=== PATIENT | male | born 1965 | race Caucasian/White ===

== ENCOUNTER 2017-02-20 15:08 | Emergency (ER) | payer SELFPAY ==
[2017-02-20 15:13] VITALS: BP 122/81
[2017-02-20] MEDS ORDERED: Aspirin EC Low Dose* 81 MG TAB.EC PO ONE (15:30)
--- NOTE | 2017-02-20 15:33 | UC ---
Prince Stevenson Alok, scribed for Renay Jimenez MD on 02/20/17 at 1529 . Dizzy HPI HPI Summary: 52M presents to the [facility] accompanied by his fipriscilla for a near syncope episode at 0700 this morning. Pt states he was driving down the highway on his way to work when he nearly lost consciousness. Pt states he felt dizzy and noted he was "fading out." Pt did not lose consciousness or have an accident. No direct trauma. pt states when he arrived at work continued to feel weak and unsteady. Pt states had another episode when thought would pass out at work. Pt spoke to his paulye who is an RN as well as his manager investment. both advised he get checked. His fiancee drove to work in [employer] and brought him here for evaluation. Pt states that since his near syncope episode feeling lightheadedness/dizziness, frontal and vertex SHELTON, weak, and myalgias. Pt denies nausea, chills, fever. No rash. Pt reports ate little lunch which is unusual for him. Pt states he was evaluated 1 approx 1 year ago for vertigo. Pt takes no regular medications. Pt smokes >1ppd and drinks ETOH occasionally. Pt has not taken any OTC medications [employer]. Pt is allergic to Codeine. Pt medications reviewed this visit. - History Of Current Complaint Chief Complaint: UCDizziness Stated Complaint: FAINT SPELL,STIFF NECK,LIGHTHEADED Hx Obtained From: Patient Onset/Duration: Still Present Timing: Constant Severity Initially: Moderate Severity Currently: Moderate Character: Lightheaded, Dizzy Aggravating Factor(s): Nothing Alleviating Factor(s): Nothing Associated Signs And Symptoms: Negative: Nausea - Allergies/Home Medications Allergies/Adverse Reactions: Allergies Allergy/AdvReac Type Severity Reaction Status Date / Time Codeine Allergy Nausea Verified 02/20/17 15:11 Home Medications: Home Medications NK [No Home Medications Reported] 02/20/17 [History Confirmed 02/20/17] PMH/Surg Hx/FS Hx/Imm Hx Previously Healthy: Yes Other Neurological History: vertigo - Surgical History Surgical History: Yes Surgery Procedure, Year, and Place: plastic surgery to nose, teeth extraction. RIGHT HAND BONE RECONSTRUCTION 1981 - Family History Known Family History: Positive: Unknown - Adopted - Social History Occupation: Employed Full-time Lives: With Family Alcohol Use: Rare Substance Use Type: None Smoking Status (MU): Light Every Day Tobacco Smoker Household Exposure Type: Cigarettes Review of Systems Constitutional: Fatigue, Other - body aches Skin: Negative Eyes: Negative ENT: Negative Respiratory: Negative Cardiovascular: Other - near syncope Gastrointestinal: Negative Genitourinary: Negative Motor: Negative Neurovascular: Negative Musculoskeletal: Other: - myalgia Neurological: Headache, Other - Dizziness, lightheadedness, near syncope, headache Psychological: Negative All Other Systems Reviewed And Are Negative: Yes Physical Exam Triage Information Reviewed: Yes Appearance: Well-Appearing, No Pain Distress, Well-Nourished Vital Signs: Initial Vital Signs Temp 97.5 F 02/20/17 15:09 Pulse 64 02/20/17 15:09 Resp 16 02/20/17 15:09 BP 122/81 02/20/17 15:09 Pulse Ox 100 02/20/17 15:09 Vital Signs Reviewed: Yes Eye Exam: Normal Eyes: Positive: Conjunctiva Clear, Conjunctiva Inflamed. Negative: Discharge ENT Exam: Normal ENT: Positive: Normal ENT inspection, Hearing grossly normal, TMs normal. Negative: Pharynx normal, Pharyngeal erythema, Nasal congestion, Nasal drainage , TM bulging, Trismus, Other: - No nystagmus, no photophobia Dental Exam: Normal Neck exam: Normal Neck: Positive: Supple, Nontender, No Lymphadenopathy Respiratory Exam: Normal Respiratory: Positive: Chest non-tender, Lungs clear, Normal breath sounds, No respiratory distress Cardiovascular Exam: Normal Cardiovascular: Positive: RRR, No Murmur, Pulses Normal Abdominal Exam: Normal Abdomen Description: Positive: Nontender, No Organomegaly, Soft Bowel Sounds: Positive: Present Musculoskeletal Exam: Normal Musculoskeletal: Positive: Strength Intact, ROM Intact Neurological Exam: Normal Neurological: Positive: Alert, Muscle Tone Normal Psychological Exam: Normal Psychological: Positive: Normal Response To Family Skin Exam: Normal Diagnostics - EKG Cardiac Rate: NL - 59 bpm Cardiac Rhythm: Sinus: Normal - TIME: 1515. Inverted t-waves V4-V6 old from EKG Mar 2016. Inverted T-wave in III. No STEMI Dizzy Course/Dx - Course Course Of Treatment: PT with an episode of near syncope x 2 today - one while driving, one why sitting at work. PT does smoke cigarette, does know know his cholesterol. Pt does not know family hx second to adoption. EKG with new inverted T wave 3. Recommend pt to ED for futher evaluation. recommend pt by EMS. Pt adamant does not want EMS - discussed with pt and financee risk of private vehicle which include but not limited to cardiac arrhythmia, worsening symptoms, permanent disability or . Pt accepting AMA Risks. advised nearest hospital, well puller if sx change or he changes mind. states understanding. Deepak in agreement - Ms. Medina - Differential Dx/Diagnosis Provider Diagnoses: near syncope, lightheadedness Discharge - Discharge Plan Condition: Stable Disposition: AGAINST MEDICAL ADVICE Patient Education Materials: Lightheadedness (ED) Referrals: No Primary Care Phys,NOPCP [Primary Care Provider] - Additional Instructions: The doctor that evaluated you today wanted you to go to the hospital by ambulance - you declined and are going by private car against medical advice. The provider reviewed many of the potential risks. Your finance will be driving you. It is recommended if your symptoms worsen or you have any changes to decision, you well puller and call 911 immediately Go directly to the emergency department at [facility]. The documentation as recorded by the Prince mcarthur Alok accurately reflects the service I personally performed and the decisions made by me, Renay Jimenez MD.
[2017-02-20] MEDS ORDERED: Aspirin Low Dose CHEW TAB* 81 MG ONE (15:37)
== END 2017-02-20 15:49 | disposition left against medical advice (07) ==
LOC: UCEAST 15:08
DX: R55 Syncope and collapse (principal); R42 Dizziness and giddiness; Z72.0 Tobacco use
CPT/HCPCS: 93005; 99212; A9270-GY; G0463

== ENCOUNTER 2017-02-20 16:03 | Emergency (ER) | payer SELFPAY ==
[2017-02-20 17:29] LABS: Hematocrit 42 % (42-52); Hemoglobin 14.4 g/dl (14.0-18.0); Mean Corpuscular HGB Conc 35 g/dl (31-36); Mean Corpuscular Hemoglobin 32 pg (27-31); Mean Corpuscular Volume 92 fL (80-94); Mean Platelet Volume 9 um3 (7.4-10.4); Red Blood Count 4.53 10^6/ul (4.0-5.4); Red Cell Distribution Width 13 % (10.5-15); White Blood Count 5.7 10^3/ul (3.5-10.8)
[2017-02-20 17:30] LABS: Add Diff/Slide Review? Slide Review Added; Comments Flag Yes
[2017-02-20 17:44] LABS: Albumin 4.3 g/dL (3.2-5.2); BUN/Creatinine Ratio 12.7 (8-20); Calcium 9.1 mg/dL (8.6-10.3); EGFR Non-African American 103.4 (>60); Globulin 2.9 g/dL (2-4); Magnesium 2.1 mg/dL (1.9-2.7); Potassium 3.6 mmol/L (3.5-5.0); Total Bilirubin 0.7 mg/dL (0.2-1.0); Total Protein 7.2 g/dL (6.4-8.9)
[2017-02-20] MEDS ORDERED: NS 0.9% 1000 ML* 1,000 ML IV ONE (17:48)
[2017-02-20 18:03] LABS: Eosinophils % 4 % (0-6); Immature Granulocytes 1 % (0-9); Neutrophil % 52 % (38-83); Reactive Lymph % 2 % (0-6)
[2017-02-20 18:04] LABS: RBC Morphology Normal (Normal)
[2017-02-20 18:25] LABS: TSH (Thyroid Stimulating Horm) 1.66 mcIU/mL (0.34-5.60)
--- NOTE | 2017-02-20 18:47 | ED ---
I, Oh,Sobk, scribed for Thad Moctezuma MD on 02/20/17 at 1653 . Syncope/Near Syncope - HPI Summary HPI Summary: This 52 y/o male presents to ED from Urgent Care for near syncopal episode x2 today. Pt was [address] [place] his way to work when pt experienced acute onset of lightheaded dizziness. 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 Positive general weakness, fatigue, mild diffuse SHELTON, and lightheaded dizziness. Pt does report this work place/garage was hot. PMHx/PSHx includes right hand reconstruction. Pt is current 1/2 ppd smoker and rare drinker. Hx of MJ use. Pt admits to habitually drinking coffee daily. Pt does not have any primary care provider. - History Of Current Complaint Chief Complaint: EDSyncope Time Seen by Provider: 02/20/17 16:31 Hx Obtained From: Patient, Medical Records Onset/Duration: Still Present Timing: Constant Context: Unwitnessed Associated Head Trauma: No Aggravating Factor(s): Nothing Alleviating Factor(s): Nothing Associated Signs And Symptoms: Lightheadedness, Weakness - general - Allergies/Home Medications Allergies/Adverse Reactions: Allergies Allergy/AdvReac Type Severity Reaction Status Date / Time Codeine Allergy Nausea Verified 02/20/17 15:11 PMH/Surg Hx/FS Hx/Imm Hx Endocrine/Hematology History: Denies: Hx Diabetes, Hx Thyroid Disease Cardiovascular History: Denies: Hx Hypertension Respiratory History: Denies: Hx Asthma, Hx Chronic Obstructive Pulmonary Disease (COPD) GI History: Denies: Hx Ulcer History: Denies: Hx Renal Disease - Surgical History Surgery Procedure, Year, and Place: plastic surgery to nose, teeth extraction. RIGHT HAND BONE RECONSTRUCTION 1981 Infectious Disease History: Denies: Hx Hepatitis, Hx Human Immunodeficiency Virus (HIV), Traveled Outside the US in Last 30 Days - Family History Known Family History: Positive: Unknown - Adopted - Social History Alcohol Use: Rare Hx Substance Use: No Substance Use Type: Reports: None Hx Tobacco Use: Yes Smoking Status (MU): Light Every Day Tobacco Smoker Review of Systems Positive: Fatigue. Negative: Fever Neurological: Other - Positive for lightheaded dizziness Positive: Headache, Syncope - near syncopal episodes x2 All Other Systems Reviewed And Are Negative: Yes Physical Exam - Summary Physical Exam Summary: Well-appearing, no pain distress, well nourished. Warm, diaphoretic, color reflects adequate perfusion Nml head/face Nml eyes. [place] conjunctiva Nml ENT Supple, non-tender CTA, breath sound present RRR Abd soft, non-tender, Bowel sounds + Nml musculoskeletal Nml neuro Nml psychiatric, affect/mood appropriate Triage Information Reviewed: Yes Vital Signs On Initial Exam: Initial Vitals Temp Pulse Resp BP Pulse Ox 97.3 F 58 18 133/89 100 02/20/17 16:04 02/20/17 16:04 02/20/17 16:04 02/20/17 16:04 02/20/17 16:04 Vital Signs Reviewed: Yes Diagnostics - Vital Signs Vital Signs Temp Pulse Resp BP Pulse Ox 02/20/17 16:04 97.3 F 58 18 133/89 100 - Laboratory Lab Results: Lab Results 02/20/17 02/20/17 02/20/17 Range/Units 17:08 17:08 17:08 WBC 5.7 (3.5-10.8) 10^3/ul RBC 4.53 (4.0-5.4) 10^6/ul Hgb 14.4 (14.0-18.0) g/dl Hct 42 (42-52) % MCV 92 (80-94) fL MCH 32 H (27-31) pg MCHC 35 (31-36) g/dl RDW 13 (10.5-15) % Plt Count 169 (150-450) 10^3/ul MPV 9 (7.4-10.4) um3 Immature Gran % (Auto) 1 (0-9) % Neut % (Auto) 61.0 (38-83) % Lymph % (Auto) 18.1 L (25-47) % Carbon % (Auto) 7.0 (1-9) % Eos % (Auto) 2.2 (0-6) % Baso % (Auto) 11.7 H (0-2) % Absolute Neuts (auto) 3.5 (1.5-7.7) 10^3/ul Absolute Lymphs (auto) 1.0 (1.0-4.8) 10^3/ul Absolute Monos (auto) 0.4 (0-0.8) 10^3/ul Absolute Eos (auto) 0.1 (0-0.6) 10^3/ul Absolute Basos (auto) 0.7 H (0-0.2) 10^3/ul Absolute Nucleated RBC 0.01 10^3/ul Neutrophils % 52 (38-83) % Band Neutrophils % 1 (0-8) % Lymphocytes % 39 (25-47) % Reactive Lymphs % 2 (0-6) % Monocytes % 1 (0-13) % Eosinophils % 4 (0-6) % Basophils % 1 (0-2) % Nucleated RBC % 0.1 Normal RBC Morphology Normal (Normal) Sodium 137 (133-145) mmol/L Potassium 3.6 (3.5-5.0) mmol/L Chloride 104 (101-111) mmol/L Carbon Dioxide 30 (22-32) mmol/L Anion Gap 3 (2-11) mmol/L BUN 10 (6-24) mg/dL Creatinine 0.79 (0.67-1.17) mg/dL Est GFR ( Amer) 133.0 (>60) Est GFR (Non-Af Amer) 103.4 (>60) BUN/Creatinine Ratio 12.7 (8-20) Glucose 79 (70-100) mg/dL Lactic Acid 0.8 (0.5-2.0) mmol/L Calcium 9.1 (8.6-10.3) mg/dL Magnesium 2.1 (1.9-2.7) mg/dL Total Bilirubin 0.70 (0.2-1.0) mg/dL AST 18 (13-39) U/L ALT 13 (7-52) U/L Alkaline Phosphatase 82 (34-104) U/L Troponin I 0.00 (<0.04) ng/mL Total Protein 7.2 (6.4-8.9) g/dL Albumin 4.3 (3.2-5.2) g/dL Globulin 2.9 (2-4) g/dL Albumin/Globulin Ratio 1.5 (1-3) TSH 1.66 (0.34-5.60) mcIU/mL Result Diagrams: 02/20/17 17:08 02/20/17 17:08 Lab Statement: Any lab studies that have been ordered have been reviewed, and results considered in the medical decision making process. - EKG 3870 Cardiac Rate: Bradycardia EKG Rhythm: Sinus Bradycardia - at 58 bpm Course/Dx Course Of Treatment: Mr. Das had a couple of near syncopal episodes today and feel weak. He is getting a W/U at this point and I expect that he will be going home. This may be a viral syndrome. - Diagnoses Provider Diagnoses: Near syncope Discharge - Discharge Plan Condition: Stable Disposition: OTHER Discharge Disposition Comment: Signed out to Dr. Johnson The documentation as recorded by the Gilbert mcarthur Soohyun accurately reflects the service I personally performed and the decisions made by me, Thad Moctezuma MD.
[2017-02-20 19:40] LABS: Urine Bacteria Absent (Absent); Urine Bilirubin Negative (Negative); Urine Glucose Negative (Negative); Urine Nitrite Negative (Negative)
--- NOTE | 2017-02-20 19:48 | ED ---
Jorge Stevenson Rebecca, scribed for Wally Johnson MD on 02/20/17 at 1945 . Progress - Progress Note Progress Note: Signed out from Dr. Moctezuma. Pt is a 52 y/o M who was driving his car on the way to work when he became dizzy, described as lightheaded. He almost lost consciousness, but did not. This lasted momentarily. Denies CP, SOB. Denies any vertigo or any nausea. States slight SHELTON afterwards. While waiting for a ride to go to Urgent Care he had another episode where he became dizzy and lightheaded again. Thinks this may be similra to when he had vertigo in the past. Does smoke. Feels much better now. 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 Does not have a PCP. Does not eat well and does not drink properly. Heart reg, lungs clear. Chart reviewed, vitals appeared stable. Reviewed labs and EKG with the pt and recommended a follow up with an outpatient workup including a stress test, echocardiogram and colonoscopy as well as getting a PCP. We will refer to physician finder. Dx is near syncope and dizziness. Condition stable. Course/Dx - Diagnoses Provider Diagnoses: Near syncope, Dizziness The documentation as recorded by the Jorge mcarthur Rebecca accurately reflects the service I personally performed and the decisions made by me, Wally Johnson MD.
[2017-02-20 19:56] VITALS: BP 128/89
== END 2017-02-20 20:00 ==
LOC: ED 16:03
DX: R55 Syncope and collapse (principal); R42 Dizziness and giddiness
CPT/HCPCS: 36415; 80053; 81003; 81015; 83605; 83735; 84443; 84484; 85025; 87086; 93005; 96360; 99284

== ENCOUNTER 2017-06-13 10:16 | Emergency (ER) | payer SELFPAY ==
[2017-06-13 10:25] VITALS: BP 153/92
[2017-06-13] MEDS ORDERED: Ketorolac INJ* 60 MG/2 ML VIAL IM ONE (11:13)
--- NOTE | 2017-06-13 12:17 | RAD ---
HISTORY: Right shoulder pain COMPARISONS: None VIEWS: 4, Frontal internal rotation, external rotation, outlet, and axillary views of the right shoulder FINDINGS: BONE DENSITY: Normal. BONES: There is no displaced fracture. JOINTS: There is no arthropathy. ALIGNMENT: There is no dislocation. SOFT TISSUES: Unremarkable. OTHER FINDINGS: None. IMPRESSION: NO ACUTE OSSEOUS INJURY. IF SYMPTOMS PERSIST, RECOMMEND REPEAT IMAGING.
--- NOTE | 2017-06-13 13:06 | ED ---
Linda Stevenson Gabriel, scribed for Thad Moctezuma MD on 06/13/17 at 1104 . Upper Extremity Pain - HPI Summary HPI Summary: This patient is a 52 year old M presenting to [facility] with a chief complaint of shoulder pain since last night. The patient rates the pain 2/10 in severity, currently. Symptoms aggravated by movement of shoulder. Symptoms alleviated by ibuprofen. Patient reports when he threw a pillow he felt an intense sharp pain. Also reports weakness. 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 - History of Current Complaint Chief Complaint: EDShoulderClavicleInj Stated Complaint: RT ARM/SHOULDER PAIN Time Seen by Provider: 06/13/17 10:48 Hx Obtained From: Patient Mechanism Of Injury: Unknown Onset/Duration: Still Present Timing: Constant - worse on exertion Severity Currently: Mild Pain Location: Shoulder Character: Sharp Aggravating Factor(s): Movement Alleviating Factor(s): Nothing - Allergies/Home Medications Allergies/Adverse Reactions: Allergies Allergy/AdvReac Type Severity Reaction Status Date / Time Codeine Allergy Nausea Verified 02/20/17 15:11 PMH/Surg Hx/FS Hx/Imm Hx Previously Healthy: No Endocrine/Hematology History: Denies: Hx Diabetes, Hx Thyroid Disease Cardiovascular History: Denies: Hx Hypertension Respiratory History: Denies: Hx Asthma, Hx Chronic Obstructive Pulmonary Disease (COPD) GI History: Denies: Hx Ulcer History: Denies: Hx Renal Disease - Surgical History Surgery Procedure, Year, and Place: plastic surgery to nose, teeth extraction. RIGHT HAND BONE RECONSTRUCTION 1981 Infectious Disease History: No Infectious Disease History: Denies: Hx Hepatitis, Hx Human Immunodeficiency Virus (HIV), Traveled Outside the US in Last 30 Days - Family History Known Family History: Negative: Hypertension, Diabetes - Social History Occupation: Employed Full-time Alcohol Use: Rare Hx Substance Use: No Substance Use Type: Reports: None Hx Tobacco Use: Yes Smoking Status (MU): Light Every Day Tobacco Smoker Review of Systems Negative: Fever Positive: Other - Shoulder pain All Other Systems Reviewed And Are Negative: Yes Physical Exam - Summary Physical Exam Summary: The patient is well-nourished in no acute distress and in no acute pain. The skin is warm and dry and skin color reflects adequate perfusion. HEENT: ~The head is normocephalic and atraumatic. The pupils are equal and reactive. The conjunctivae are clear and without drainage. ~Nares are patent and without drainage. ~Mouth reveals moist mucous membranes and the throat is without erythema and exudate. ~The external ears are intact. The ear canals are patent and without drainage. The tympanic membranes are intact. Neck is supple with full range of motion and non-tender. There are no carotid bruits. ~There is no neck vein distension. Respiratory: Chest is non-tender. ~Lungs are clear to auscultation and breath sounds are symmetrical and equal. Cardiovascular: Heart is regular rate and rhythm. ~There is no murmur or rub auscultated. ~~There is no peripheral edema and pulses are symmetrical and equal. Abdomen: The abdomen is soft and non-tender. ~There are normal bowel sounds heard in all four quadrants and there is no organomegaly palpated. Musculoskeletal: There is no back pain noted. There is good capillary refill. ~ There is no peripheral edema or calf tenderness elicited. Patients right shoulder tender to rom of shoulder but not tender to stress of Supraspinatus. Shoulder is also tender to passive and active abduction and extension. Neurological: Patient is alert and oriented to person, place and time. ~The patient has symmetrical motor strength in all four extremities. ~Cranial nerves are grossly intact. Deep tendon reflexes are symmetrical and equal in all four extremities. Psychiatric: The patient has an appropriate affect and does not exhibit any anxiety or depression. Triage Information Reviewed: Yes Vital Signs On Initial Exam: Initial Vitals Temp Pulse Resp BP Pulse Ox 97.5 F 87 17 153/92 98 06/13/17 10:22 06/13/17 10:22 06/13/17 10:22 06/13/17 10:22 06/13/17 10:22 Vital Signs Reviewed: Yes Diagnostics - Vital Signs Vital Signs Temp Pulse Resp BP Pulse Ox 06/13/17 10:22 97.5 F 87 17 153/92 98 - Laboratory Lab Statement: Any lab studies that have been ordered have been reviewed, and results considered in the medical decision making process. - Radiology Shoulder XRAY Radiology Interpretation Completed By: Radiologist - NO ACUTE OSSEOUS INJURY. IF SYMPTOMS PERSIST, RECOMMEND REPEAT IMAGING. ED physician has reviewed this report and agrees. Course/Dx - Course Course Of Treatment: Mr. Das has had right shoulder pain for a month at least. He has done repetitive work for years. Every once in awhile he gets a sharp, sudden and severe pain in his right shoulder with rapid movement. It hurts to abduct or extend. It is not tender. Plain film was negative. I recommend resting the shoulder, using NSAIDS and F/U with ortho. He may need an MRI. - Diagnoses Differential Diagnosis/HQI/PQRI: Positive: Other - Shoulder injury Provider Diagnoses: Inflammation of joint of right shoulder region Discharge - Discharge Plan Condition: Stable Disposition: HOME Patient Education Materials: Rotator Cuff Injury (ED) Referrals: No Primary Care Phys,NOPCP [Primary Care Provider] - Regla Syed MD [Medical Doctor] - Additional Instructions: Take Ibuprofen as needed for pain. Follow up with Dr. Syed in 4 days. RETURN TO THE EMERGENCY DEPARTMENT FOR CHANGING OR WORSENING SYMPTOMS. The documentation as recorded by the Linda mcarthur Gabriel accurately reflects the service I personally performed and the decisions made by me, Thad Moctezuma MD.
== END 2017-06-13 13:03 | disposition home or self-care (01) ==
LOC: ED 10:16
DX: M19.011 Primary osteoarthritis, right shoulder (principal)
CPT/HCPCS: 96372; 99281; J1885